=== PATIENT | male | born 1985 | race Caucasian/White ===

== ENCOUNTER 2019-07-25 16:06 | Emergency (ER) | payer MEDICAID ==
[~2019-07-25] VITALS: Ht 170.2 cm; Wt 80.0 kg
[~2019-07-25 16:06] MED LIST: PENI500T2 PO
[2019-07-25 16:11] VITALS: BP 135/84
[2019-07-25] MEDS ORDERED: IBUP-1984 PO (17:27)
[2019-07-25] MEDS ORDERED: PENI500T2 PO (17:27)
[2019-07-25] MEDS ORDERED: ondansetron 4mg rapidly disintigrating tab PO ONE (17:30)
[2019-07-25] MEDS ORDERED: HYDROcodone/acetaminophen 5mg/325mg tablet PO ONE (17:30)
== END 2019-07-25 17:45 | disposition home or self-care (01) ==
LOC: ER 16:07
DX: K04.7 Periapical abscess without sinus (principal); Z88.2 Allergy status to sulfonamides; Z79.2 Long term (current) use of antibiotics; Z79.899 Other long term (current) drug therapy
CPT/HCPCS: 99283

== ENCOUNTER 2023-10-28 18:03 | Emergency (ER) | payer MEDICAID, OTHER ==
[~2023-10-28] VITALS: Ht 175.3 cm; Wt 68.0 kg
[2023-10-28 18:06] VITALS: BP 131/84; PULSE 89; RESP 18; TEMP 98.7; O2SAT 98
[2023-10-28] MEDS ORDERED: AMOX-580 PO (18:38)
[2023-10-28] MEDS ORDERED: HYDR-3965 PO (18:38)
[2023-10-28] MEDS: ketorolac trometh 30MG/ML vial 30 MG/ML VIAL IM ONE (19:08)
== END 2023-10-28 19:14 | disposition home or self-care (01) ==
LOC: ER 18:04
DX: K08.89 Other specified disorders of teeth and supporting structures (principal); K04.7 Periapical abscess without sinus; Z88.2 Allergy status to sulfonamides; Z79.1 Long term (current) use of non-steroidal anti-inflammatories (NSAID); Z87.442 Personal history of urinary calculi
CPT/HCPCS: 99283